=== PATIENT | female | born 1945 | race Caucasian/White ===

== ENCOUNTER 2018-11-25 19:38 | Emergency (ER) | payer MEDICARE ==
[2018-11-25] MEDS ORDERED: Cyclobenzaprine 10 MG TAB ONE (20:05)
[2018-11-25] MEDS ORDERED: Ketorolac Tromethamine 60 MG/2 ML VIAL ONE (20:05)
== END 2018-11-25 20:05 | disposition home or self-care (01) ==
LOC: BURERS 19:38
DX: M54.5 Low back pain (principal); I10 Essential (primary) hypertension; K21.9 Gastro-esophageal reflux disease without esophagitis; E78.5 Hyperlipidemia, unspecified; Z79.899 Other long term (current) drug therapy
CPT/HCPCS: 96372; J1885